=== PATIENT | female | born 1965 | race Hispanic/Latino ===

== ENCOUNTER 2024-07-12 15:49 | Outpatient (CLI) | payer BC | END 2024-07-12 15:50 | disposition home or self-care (01) | LOC: NAV RAD 15:49 | PROVIDERS: ATTEND Family Medicine | DX: M75.01 Adhesive capsulitis of right shoulder (principal); M19.011 Primary osteoarthritis, right shoulder; M25.711 Osteophyte, right shoulder; I70.0 Atherosclerosis of aorta; M25.811 Other specified joint disorders, right shoulder ==